=== PATIENT | male | born 1965 | race Two or more races ===

== ENCOUNTER → 2017-05-15 | Day surgery (SDC) | payer MEDICARE, OTHER ==
[2017-05-15] VITALS (12 sets, daily range): BP systolic 144–218; BP diastolic 84–109
[~2017-05-15] VITALS: Ht 170.2 cm; Wt 77.1 kg
[~2017-05-15] MED LIST: ARANESP10 MCG/0.4 IVP; Atropine Inj 1mg/10ml Syr IV PRN; BSS 15ml BTL ONE; BSS 500ml btl ONE; Bupivacaine 0.75% 30ml vial INJ ONE; CALCIUM ACETAT667 M1 PO; COMBIGAN EYE DRO5 ML OP; Cyclopentolate 1% Opth Sol 2ml ONE; Dexamethasone 4mg/ml vial ONE; DiphenhydrAMINE 50mg/ml Inj IVP PRN; EPINEPHrine 1mg/1ml Amp ONE; FERROUS SULFAT325 MG ORAL; Goniosol 2.5% Opth Soln - 15ml ONE; HYDRALAZINE HCL25 M2 PO; HYDROcodone/Acetamin 7.5/325 tab ORAL PRN; Hydromorphone 0.5mg/0.5ml inj IVP PRN; Indocyanine Green 25mg Inj INJ ONE; Kenalog-40 1ml Vial ONE; Ketorolac 30mg Inj IV PRN; Ketorolac 60mg Inj IV PRN; LEVEMIR FL100 UNIT/1 SUBQ; LEVEMIR100 UNIT/1 SUBQ; LIQUACEL LIQUID30 ML IV; LORazepam Inj 2mg/ml 1ml IV PRN; LR 1000ml 1,000 ML IVLG SCH; LR 1000ml ONE; Lidocaine 1% MPF 10mg/ml 5ml ONE; Lidocaine 2% MPF 5ml Vial INJ ONE; METOPROLOL SUCC25 MG ORAL; Maxitrol Opth Oint 3.5gm ONE; Metoclopramide 10mg/2ml Inj IVP PRN; Midazolam 2mg/2ml Inj IVP PRN; Midazolam 2mg/2ml Inj ONE; NORVASC5 MG ORAL; NOVOLOG100 UNIT/4 SQ; NS Irrig 1000ml ONE; Norco 5mg/325mg tab ORAL PRN; Phenylephrine 2.5% Op 2ml Soln ONE; Povidone-Iodine 5% opth solution ONE; Pred Forte 1% Opth Susp 1ml ONE; Proparacaine 0.5% Opth Soln 15ml LEFT EYE SCH; Proparacaine 0.5% Opth Soln 15ml ONE; Propofol 200mg/20ml IV ONE; SODIUM BICARBO325 MG PO; Sodium Hyaluronate 10 mg/ml 0.85ml ONE; Sterile Water Irrig 1000ml IRRIG ONE; Tetracaine 0.5% Opth 4ml Soln ONE; Tropicamide 1% Opth 15ml Soln ONE; VENOFER50 MG/2.5 IV; ZEMPLAR2 MCG/1 ML IV; fentaNYL 100 mcg/2 mL IV PRN; oxyCODONE HCL/Acetaminophen 5/325mg ORAL PRN
[2017-05-15] MEDS: Tropicamide 1% Opth 15ml Soln LEFT EYE SCH ×3 (10:42→11:06)
[2017-05-15] MEDS: Cyclopentolate 1% Opth Sol 2ml LEFT EYE SCH ×3 (10:42→11:06)
[2017-05-15] MEDS: Phenylephrine 2.5% Op 2ml Soln LEFT EYE SCH ×3 (10:42→11:06)
--- NOTE | 2017-05-15 12:01 | Anethesia Preoperative Eval ---
Anesthesia Pre-op PMH/ROS General Date of Evaluation: May 15, 2017 Time of Evaluation: 12:11 Anesthesiologist: Mio ASA Score: ASA 3 Mallampati Score Class I : Soft palate, uvula, fauces, pillars visible Class II: Soft palate, uvula, fauces visible Class III: Soft palate, base of uvula visible Class IV: Only hard plate visible Mallampati Classification: Class III Surgeon: Jay Diagnosis: Retinal Detachment OS Surgical Procedure: Vitrectomy OS Anesthesia History: none Family History: no anesthesia problems Allergies: Coded Allergies: No Known Allergies (Unverified , 05/14/17) Medications: see eMAR Past Medical History Cardiovascular: Reports: HTN Gastrointestinal/Genitourinary: Reports: GERD, ESRD - dialysis Endocrine: Reports: DM HEENT: Reports: cataract (L), cataract (R), DIOMEDE (L), DIOMEDE (R) Hematology/Immune: Reports: other - Foot CA PSxH Narrative: L Arm Shunt Anesthesia Pre-op Phys. Exam Physician Exam Last Vital Signs Date Time Temp Pulse Resp B/P (MAP) Pulse Ox O2 Delivery O2 Flow Rate FiO2 05/15/17 10:55 98.1 79 20 166/91 98 Room Air Constitutional: NAD Neurologic: CN 2-12 intact Cardiovascular: RRR Respiratory: CTA Gastrointestinal: S/NT/ND Airway Exam Mallampati Score: Class III MO: limited ROM: limited Teeth: missing, intact Anesthesia Pre-op A/P Labs Chemistry Test 05/15/17 10:45 Potassium Level 5.0 MMOL/L (3.5-5.1) Risk Assessment & Plan Assessment: ASA 3 Plan: GA Status Change Before Surgery: Smooth Teran MD May 15, 2017 12:01
--- NOTE | 2017-05-15 12:13 | Immediate Post-Op Evaluation ---
Immediate Post-Op Evalulation Immediate Post-Op Evalulation Procedure: Vitrectomy OS Date of Evaluation: May 15, 2017 Time of Evaluation: 14:17 IV Fluids: 600 NS Blood Products: 0 Estimated Blood Loss: 1 Urinary Output: 0 Blood Pressure Systolic: 151 Blood Pressure Diastolic: 84 Pulse Rate: 83 Respiratory Rate: 16 O2 Sat by Pulse Oximetry: 100 Temperature (Fahrenheit): 97 Pain Score (1-10): 1 Nausea: No Vomiting: No Complications 0 Patient Status: awake, reacts, patent, none Hydration Status: adequate Smooth Lieberman MD May 15, 2017 12:13
--- NOTE | 2017-05-15 12:14 | 48 Hour Post Anesthesia Eval ---
Post Anesthesia Evaluation Procedure: Vitrectomy OS Date of Evaluation: May 15, 2017 Time of Evaluation: 16:34 Blood Pressure Systolic: 164 0: 89 Pulse Rate: 84 Respiratory Rate: 18 Temperature (Fahrenheit): 98.2 O2 Sat by Pulse Oximetry: 97 Airway: patent Nausea: No Vomiting: No Pain Intensity: 1 Hydration Status: adequate Cardiopulmonary Status: Stable Mental Status/LOC: patient returned to baseline Follow-up Care/Observations: 0 Post-Anesthesia Complications: 0 Smooth Lieberman MD May 15, 2017 12:14
--- NOTE | 2017-05-15 12:36 | Pre-Procedure Note/Attestation ---
Pre-Procedure Note/Attestation Complete Prior to Procedure Planned Procedure: left Procedure Narrative: Progressive TRD OS Indications for Procedure Pre-Operative Diagnosis: TRD OS Attestation I attest that I discussed the nature of the procedure; its benefits; risks and complications; and alternatives (and the risks and benefits of such alternatives ), prior to the procedure, with the patient (or the patient's legal wireless sales representative). I attest that, if there was a reasonable possibility of needing a blood transfusion, the patient (or the patient's legal wireless sales representative) was given the [facility] standardized written summary, pursuant to the [place] Luis Blood Safety Act ([place] Health and Safety Code # 1645, as amended). I attest that I re-evaluated the patient just prior to the surgery and that there has been no change in the patient's H&P, except as documented below: Micah Thompson M.D. May 15, 2017 12:36
--- NOTE | 2017-05-15 12:38 | Brief Operative Note ---
Immediate Post Operative Note Operative Note Pre-op Diagnosis: PDR/TRD OS Procedure: PPV/MP/EL/SO OS Post-op Diagnosis: Same Post-op Diagnosis: same as pre-op Surgeon: Jay Anesthesia: local Specimen: none Complications: none Condition: stable Fluids: Min Estimated Blood Loss: minimal Drains: none Implant(s) used?: Micah Guerra M.D. May 15, 2017 12:38
--- NOTE | 2017-05-15 12:38 | Operative Note - PDOC ---
Operative Note Operative Note Pre-op Diagnosis: PDR/TRD OS Procedure: Pars plana vitrectomy, membrane peel, tractional retinal detachment repair, endolaser, air-fluid exchange, infusion of silicone oil (1K) LEFT EYE Post-op Diagnosis: Same Post-op Diagnosis: same as pre-op Surgeon: Jay Anesthesia: local Specimen: none Complications: none Condition: stable Fluids: Min Estimated Blood Loss: minimal Drains: none Implant(s) used?: Yes - Silicone oil Indications for Procedure [place] [facility] [place] Diagnosis: 1. 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 Anesthesia: RB->GA Complications: None Indications for the procedure: The patient has vision loss due progressive retinopathy and presents today for surgery after review of the risks, benefits, alternative and signing informed consent into the medical chart. We carefully reviewed the decision to proceed with surgery prior to today. After careful consideration, the patient and his were motivated to proceed. Description of Procedure Procedure performed: The patient was met in the pre-operative area where informed consent was reviewed. The operative eye was verified, marked and dilated. The patient was transferred to the operative suite, where cardiopulmonary monitoring was established and retrobulbar anesthetic was administered without complications. The eye was prepped and draped in sterile ophthalmic fashion. Under microscope visualization the 23 gauge infusion line was placed 3.5 millimeters inferotemporally. After visualization of the tip in the vitreous cavity, the infusion line was turned on. The superotemporal and superonasal cannulas were placed. Under ReSight visualization, peripheral and core vitrectomy was performed. As the vitreous and old blood was cleared the macular TRD was notable. The ney- posterior traction was released meticulously. Then attention was directed to the posterior pole with high magnification. Using the forceps and the cutter tip, the tractional membranes were dissected and released. There were two stretch holes in the superotemporal macula and an area of dense gliosis/ hemorrhage in the inferotemporal macula. After meticulous dissection of the posterior pole, the central macula was flattened. Of note, the patient was moving due to labored respiration during the procedure and was converted to GA with LMA. Next, the PRP treatment was completed as there were extensive areas of the periphery that were not lasered due to limited visualization under old hemorrhage. Inspection of the periphery revealed no iatrogenic breaks. Air fluid exchange was performed, the retina was reattached without significant hemorrhage. Silicone oil was infused into the eye. The sclerotomies were sutured. The eye maintained normal intraocular pressure. Subconjunctival vancomycin and dexamethasone were administered. The lid speculum was removed. The eye was cleaned of prep and drape. Atropine drop and Maxitrol ointment was applied. A pressure patch was placed. The patient was turned over to the anesthesia team and transferred in stable condition to the PACU. Micah Thompson M.D. May 15, 2017 12:38
--- NOTE | 2017-08-17 11:41 | Cardiology Report ---
APPROVED REPORT EKG Measurement Heart [id number] Normal sinus rhythm Normal ECG
== END | disposition home or self-care (01) ==
LOC: SUR 09:57
DX: E11.3522 Type 2 diabetes mellitus with proliferative diabetic retinopathy with traction retinal detachment involving the macula, left eye (principal); I12.0 Hypertensive chronic kidney disease with stage 5 chronic kidney disease or end stage renal disease; E11.22 Type 2 diabetes mellitus with diabetic chronic kidney disease; N18.6 End stage renal disease; Z99.2 Dependence on renal dialysis; K21.9 Gastro-esophageal reflux disease without esophagitis; Z85.89 Personal history of malignant neoplasm of other organs and systems; E11.39 Type 2 diabetes mellitus with other diabetic ophthalmic complication
CPT/HCPCS: 36415; 67042; 82962; 84132; 93005; J0360; J1100; J2250; J2704; J3301; J3370; J3490; J7120; 94003; 94150

== ENCOUNTER 2017-08-21 10:00 | Day surgery (SDC) | payer MEDICARE, OTHER ==
[~2017-08-21] VITALS: Ht 167.6 cm; Wt 72.6 kg
[2017-08-21] VITALS (9 sets, daily range): BP systolic 132–189; BP diastolic 72–98
[~2017-08-21 10:00] MED LIST changes: -Atropine Inj 1mg/10ml Syr IV PRN; -BSS 15ml BTL ONE; -BSS 500ml btl ONE; -Bupivacaine 0.75% 30ml vial INJ ONE; -Cyclopentolate 1% Opth Sol 2ml ONE; -Dexamethasone 4mg/ml vial ONE; -DiphenhydrAMINE 50mg/ml Inj IVP PRN; -EPINEPHrine 1mg/1ml Amp ONE; -FERROUS SULFAT325 MG ORAL; -Goniosol 2.5% Opth Soln - 15ml ONE; -HYDROcodone/Acetamin 7.5/325 tab ORAL PRN; -Hydromorphone 0.5mg/0.5ml inj IVP PRN; -Indocyanine Green 25mg Inj INJ ONE; -Kenalog-40 1ml Vial ONE; -Ketorolac 30mg Inj IV PRN; -Ketorolac 60mg Inj IV PRN; -LORazepam Inj 2mg/ml 1ml IV PRN; -LR 1000ml 1,000 ML IVLG SCH; -LR 1000ml ONE; -Lidocaine 1% MPF 10mg/ml 5ml ONE; -Lidocaine 2% MPF 5ml Vial INJ ONE; -Maxitrol Opth Oint 3.5gm ONE; -Metoclopramide 10mg/2ml Inj IVP PRN; -Midazolam 2mg/2ml Inj IVP PRN; -Midazolam 2mg/2ml Inj ONE; -NS Irrig 1000ml ONE; -Norco 5mg/325mg tab ORAL PRN; -Phenylephrine 2.5% Op 2ml Soln ONE; -Povidone-Iodine 5% opth solution ONE; -Pred Forte 1% Opth Susp 1ml ONE; +Proparacaine 0.5% Opth Soln 15ml LEFT EYE ONE; -Proparacaine 0.5% Opth Soln 15ml LEFT EYE SCH; -Proparacaine 0.5% Opth Soln 15ml ONE; -Propofol 200mg/20ml IV ONE; -Sodium Hyaluronate 10 mg/ml 0.85ml ONE; -Sterile Water Irrig 1000ml IRRIG ONE; -Tetracaine 0.5% Opth 4ml Soln ONE; -Tropicamide 1% Opth 15ml Soln ONE; -fentaNYL 100 mcg/2 mL IV PRN; -oxyCODONE HCL/Acetaminophen 5/325mg ORAL PRN
[2017-08-21] MEDS ORDERED: Cyclopentolate 1% Opth Sol 2ml ONE (10:21)
[2017-08-21] MEDS ORDERED: Tropicamide 1% Opth 15ml Soln ONE (10:21)
[2017-08-21] MEDS ORDERED: Phenylephrine 2.5% Op 2ml Soln ONE (10:21)
[2017-08-21] MEDS ORDERED: Proparacaine 0.5% Opth Soln 15ml ONE (10:22)
[2017-08-21] MEDS: Cyclopentolate 1% Opth Sol 2ml LEFT EYE SCH ×3 (10:45→11:06)
[2017-08-21] MEDS: Phenylephrine 2.5% Op 2ml Soln LEFT EYE SCH ×3 (10:45→11:07)
[2017-08-21] MEDS: Tropicamide 1% Opth 15ml Soln LEFT EYE SCH ×3 (10:45→11:07)
[2017-08-21 10:59] LABS: BASOPHILS % (AUTO) 1.3 % (0.0-2.0); EOSINOPHILS % (AUTO) 1.7 % (0.0-3.0); HEMOGLOBIN 12.8 G/DL (14.2-18.0); LYMPHOCYTES % (AUTO) 14.1 % (20.0-45.0); MEAN CORPUSCULAR VOLUME 96 FL (80-99); MONOCYTES % (AUTO) 10.9 % (1.0-10.0); PLATELET COUNT 224 K/UL (150-450); RED BLOOD COUNT 3.94 M/UL (4.70-6.10); RED CELL DISTRIBUTION WIDTH 13.1 % (11.6-14.8); WHITE BLOOD COUNT 13.1 K/UL (4.8-10.8)
[2017-08-21] MEDS ORDERED: FERROUS SULFAT325 MG ORAL (11:09)
[2017-08-21] MEDS ORDERED: COMBIGAN EYE DRO5 ML OP (11:11)
[2017-08-21 11:14] LABS: ANION GAP 13 mmol/L (5-15); BLOOD UREA NITROGEN 58 mg/dL (7-18); CALCIUM 8.6 MG/DL (8.5-10.1); CARBON DIOXIDE 22 MMOL/L (21-32); CHLORIDE 99 MMOL/L (98-107); CREATININE 7.3 MG/DL (0.55-1.30); POTASSIUM 4.7 MMOL/L (3.5-5.1); SODIUM 134 MMOL/L (136-145)
[2017-08-21] MEDS ORDERED: BSS 500ml btl ONE (12:03)
[2017-08-21] MEDS ORDERED: Kenalog-40 1ml Vial ONE (12:03)
[2017-08-21] MEDS ORDERED: Pred Forte 1% Opth Susp 1ml ONE (12:03)
[2017-08-21] MEDS ORDERED: EPINEPHrine 1mg/1ml Amp ONE (12:04)
[2017-08-21] MEDS ORDERED: Maxitrol Opth Oint 3.5gm ONE (12:04)
[2017-08-21] MEDS ORDERED: Dexamethasone 4mg/ml vial ONE (12:04)
[2017-08-21] MEDS ORDERED: Bupivacaine 0.75% 30ml vial INJ ONE (12:04)
[2017-08-21] MEDS ORDERED: Tetracaine 0.5% Opth 4ml Soln ONE (12:04)
[2017-08-21] MEDS ORDERED: Lidocaine 2% MPF 5ml Vial INJ ONE (12:05)
[2017-08-21] MEDS ORDERED: BSS 15ml BTL ONE (12:05)
[2017-08-21] MEDS ORDERED: Goniosol 2.5% Opth Soln - 15ml ONE (12:05)
[2017-08-21] MEDS ORDERED: Carbachol 0.01% Op Soln 1.5ml vial ONE (12:05)
[2017-08-21] MEDS ORDERED: Povidone-Iodine 5% opth solution ONE (12:06)
[2017-08-21] MEDS ORDERED: Acetylcholine Injection (OR) ONE (12:06)
[2017-08-21] MEDS ORDERED: Propofol 200mg/20ml IV ONE (12:30)
[2017-08-21] MEDS ORDERED: fentaNYL 100 mcg/2 mL IV ONE (12:30)
[2017-08-21] MEDS ORDERED: Midazolam 2mg/2ml Inj ONE (12:30)
[2017-08-21] MEDS ORDERED: NS 110ml ONE (12:30)
[2017-08-21] MEDS ORDERED: NS Irrig 1000ml ONE (12:30)
[2017-08-21] MEDS ORDERED: Sterile Water Irrig 1000ml IRRIG ONE (12:30)
--- NOTE | 2017-08-21 12:43 | Pre-Procedure Note/Attestation ---
Pre-Procedure Note/Attestation Complete Prior to Procedure Planned Procedure: left Procedure Narrative: SO Removal OS Indications for Procedure Pre-Operative Diagnosis: PDR/TRD/SO OS Attestation I attest that I discussed the nature of the procedure; its benefits; risks and complications; and alternatives (and the risks and benefits of such alternatives ), prior to the procedure, with the patient (or the patient's legal novelties sales representative). I attest that, if there was a reasonable possibility of needing a blood transfusion, the patient (or the patient's legal novelties sales representative) was given the [facility] standardized written summary, pursuant to the [place]ko Luis Blood Safety Act ([place] Health and Safety Code # 1645, as amended). I attest that I re-evaluated the patient just prior to the surgery and that there has been no change in the patient's H&P, except as documented below: Micah Thompson M.D. Aug 21, 2017 12:43
--- NOTE | 2017-08-21 12:44 | Operative Note - PDOC ---
Operative Note Operative Note Pre-op Diagnosis: PDR/TRD/SO OS Procedure: PPV/SOR/EL OS Post-op Diagnosis: Same Surgeon: Jay Anesthesia: general Specimen: none Complications: none Condition: stable Fluids: Min Estimated Blood Loss: minimal Drains: none Implant(s) used?: No Indications for Procedure Location: [facility] [place] Pre-operative Diagnosis: 1. PDR/TRD/Silicone oil, LEFT EYE Post-operative Diagnosis: Same Procedure: Pars plana vitrectomy, SO removal, endolaser, air-fluid exchange, LEFT EYE Surgeon: Micah Thompson M.D. Anesthesia: GA Complications: None Indications for the procedure: The patient has vision loss due PDR/TRD and retained silicone oil. He presents today for surgery after review of the risks, benefits, alternative and signing informed consent into the medical chart. Description of Procedure Procedure performed: The patient was met in the pre-operative area where informed consent was reviewed. The operative eye was verified, marked and dilated. The patient was transferred to the operative suite, where cardiopulmonary monitoring was established and general anesthetic was administered without complications. The eye was prepped and draped in sterile ophthalmic fashion. Under microscope visualization the 23 gauge infusion line was placed 4 millimeters inferotemporally. After visualization of the tip in the vitreous cavity, the infusion line was turned on. The superotemporal and superonasal cannulas were placed. Silicone oil was removed from the eye. Under BIOM visualization, the retina appeared to be reattached with temporal macula focal area of gliosis and vascular complex. This area was lasered lightly. Additional PRP was applied to the periphery. Inspection of the periphery revealed no iatrogenic breaks. Partial air fluid exchange was performed. The cannulas were removed. The eye maintained normal intraocular pressure. Subconjunctival vancomycin and dexamethasone were administered. The lid speculum was removed. The eye was cleaned of prep and drape. Atropine drop and Maxitrol ointment was applied. A pressure patch was placed. The patient was turned over to the anesthesia team and transferred in stable condition to the PACU. Micah Thompson M.D. Aug 21, 2017 12:44
--- NOTE | 2017-08-21 12:44 | Brief Operative Note ---
Immediate Post Operative Note Operative Note Pre-op Diagnosis: PDR/TRD/SO OS Procedure: PPV/SOR/EL OS Post-op Diagnosis: Same Surgeon: Jay Anesthesia: general Specimen: none Complications: none Condition: stable Fluids: Min Estimated Blood Loss: minimal Drains: none Implant(s) used?: No Micah Thompson M.D. Aug 21, 2017 12:44
[2017-08-21] MEDS ORDERED: fentaNYL 100 mcg/2 mL IV PRN (13:00)
[2017-08-21] MEDS ORDERED: DiphenhydrAMINE 50mg/ml Inj IVP PRN (13:00)
--- NOTE | 2017-08-21 13:06 | Anethesia Preoperative Eval ---
Anesthesia Pre-op PMH/ROS General Date of Evaluation: Aug 21, 2017 Time of Evaluation: 12:30 Anesthesiologist: Anthony ASA Score: ASA 3 Mallampati Score Class I : Soft palate, uvula, fauces, pillars visible Class II: Soft palate, uvula, fauces visible Class III: Soft palate, base of uvula visible Class IV: Only hard plate visible Mallampati Classification: Class II Surgeon: Jay Diagnosis: Diabetic retinopathy Surgical Procedure: Vitrectomy, endolaser, air/fluid exchange Allergies: Coded Allergies: No Known Allergies (Unverified , 05/14/17) Medications: see eMAR Past Medical History Cardiovascular: Reports: HTN, Denies: CAD, GA, valve dz, arrhythmia, other Pulmonary: Denies: asthma, COPD, ERIN, other Gastrointestinal/Genitourinary: Reports: ESRD - HD- last dialyzed last night, Denies: GERD, CRI, other Neurologic/Psychiatric: Denies: dementia, CVA, depression/anxiety, TIA, other Endocrine: Reports: DM, Denies: hypothyroidism, steroids, other HEENT: Reports: cataract (L), cataract (R), Denies: glaucoma, COWLITZ (L), COWLITZ (R), other Hematology/Immune: Denies: anemia, DVT, bleeding disorder, other Musculoskeletal/Integumentary: Denies: OA, RA, DJD, DDD, edema, other PMH Narrative: HTN, DM, ESRD on HD (dialyzed last night) PSxH Narrative: Knee scope, multiple eye surgeries Anesthesia Pre-op Phys. Exam Physician Exam Last Vital Signs Date Time Temp Pulse Resp B/P (MAP) Pulse Ox O2 Delivery O2 Flow Rate FiO2 08/21/17 10:47 97.3 76 20 158/82 99 Room Air 97.3 Constitutional: NAD Neurologic: CN 2-12 intact Cardiovascular: RRR, no M/R/G Respiratory: CTA Gastrointestinal: S/NT/ND Airway Exam Mallampati Score: Class II MO: full ROM: full Teeth: intact Anesthesia Pre-op A/P Labs Hematology Test 08/21/17 10:30 White Blood Count 13.1 K/UL (4.8-10.8) H Red Blood Count 3.94 M/UL (4.70-6.10) L Hemoglobin 12.8 G/DL (14.2-18.0) L Hematocrit 38.0 % (42.0-52.0) L Mean Corpuscular Volume 96 FL (80-99) Mean Corpuscular Hemoglobin 32.5 PG (27.0-31.0) H Mean Corpuscular Hemoglobin Concent 33.7 G/DL (32.0-36.0) Red Cell Distribution Width 13.1 % (11.6-14.8) Platelet Count 224 K/UL (150-450) Mean Platelet Volume 9.8 FL (6.5-10.1) Neutrophils (%) (Auto) 72.0 % (45.0-75.0) Lymphocytes (%) (Auto) 14.1 % (20.0-45.0) L Monocytes (%) (Auto) 10.9 % (1.0-10.0) H Eosinophils (%) (Auto) 1.7 % (0.0-3.0) Basophils (%) (Auto) 1.3 % (0.0-2.0) Chemistry Test 08/21/17 10:30 Sodium Level 134 MMOL/L (136-145) L Potassium Level 4.7 MMOL/L (3.5-5.1) Chloride Level 99 MMOL/L (98-107) Carbon Dioxide Level 22 MMOL/L (21-32) Anion Gap 13 mmol/L (5-15) Blood Urea Nitrogen 58 mg/dL (7-18) H Creatinine 7.3 MG/DL (0.55-1.30) H Estimat Glomerular Filtration Rate 7.9 mL/min (>60) Glucose Level 214 MG/DL (74-106) H Calcium Level 8.6 MG/DL (8.5-10.1) Studies Pre-op Studies: EKG - NSR Risk Assessment & Plan Assessment: ASA class 3 patient for vitrectomy left eye. Patient states his last vitrectomy was painful during the surgery and insists that he be asleep. Have discussed with surgeon who agrees that patient should be asleep for the procedure. Plan: GA, LMA Status Change Before Surgery: No Pre-Antibiotics Drug: None MADELYN MIX M.D. Aug 21, 2017 13:06
--- NOTE | 2017-08-21 13:07 | Immediate Post-Op Evaluation ---
Immediate Post-Op Evalulation Immediate Post-Op Evalulation Procedure: Vitrectomy,,,,, endolaser, air/fluid exchange left eye Date of Evaluation: Aug 21, 2017 Time of Evaluation: 14:06 IV Fluids: 250 Blood Pressure Systolic: 185 Blood Pressure Diastolic: 100 Pulse Rate: 81 Respiratory Rate: 18 O2 Sat by Pulse Oximetry: 100 Temperature (Fahrenheit): 97.9 Pain Score (1-10): 0 Nausea: No Vomiting: No Complications No complication Patient Status: awake, patent, none Hydration Status: adequate Drug: None MADELYN MIX M.D. Aug 21, 2017 13:07
--- NOTE | 2017-08-21 13:59 | 48 Hour Post Anesthesia Eval ---
Post Anesthesia Evaluation Procedure: Vitrectomy,,,,, endolaser, air/fluid exchange left eye Date of Evaluation: Aug 21, 2017 Time of Evaluation: 14:30 Blood Pressure Systolic: 168 0: 88 Pulse Rate: 83 Respiratory Rate: 18 O2 Sat by Pulse Oximetry: 100 Airway: patent Nausea: No Vomiting: No Pain Intensity: 0 Hydration Status: adequate Cardiopulmonary Status: Stable Mental Status/LOC: patient returned to baseline Follow-up Care/Observations: As per surgery Post-Anesthesia Complications: No anesthetic complication Follow-up care needed: N/A MADELYN MIX M.D. Aug 21, 2017 13:59
--- NOTE | 2017-08-26 16:26 | Cardiology Report ---
APPROVED REPORT EKG Measurement Heart [id number] Normal sinus rhythm Normal ECG
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
== END 2017-08-21 15:45 | disposition home or self-care (01) ==
LOC: SUR 10:00
DX: E11.35 Type 2 diabetes mellitus with proliferative diabetic retinopathy (principal); I12.0 Hypertensive chronic kidney disease with stage 5 chronic kidney disease or end stage renal disease; E11.22 Type 2 diabetes mellitus with diabetic chronic kidney disease; N18.6 End stage renal disease; Z99.2 Dependence on renal dialysis
CPT/HCPCS: 36415; 67025; 67036; 67039; 80048; 82962; 85025; 93005; J0360; J1100; J2250; J2405; J2704; J3010; J3370; J3490; 94003; 94150